=== PATIENT | male | born 1990 | race Caucasian/White ===

== ENCOUNTER 2019-06-18 06:33 | Emergency (ER) | payer MEDICAID ==
[~2019-06-18] VITALS: Ht 175.3 cm; Wt 68.0 kg
--- NOTE | 2019-06-18 06:40 | NUR ---
PT AMBULATED TO BED #11
[2019-06-18 07:04] VITALS: BP 137/97
--- NOTE | 2019-06-18 07:13 | NUR ---
28 Y/O MALE PT C/O LACERATION TO THE LEFT UPPER LIP. PT STATED HE DRINKING AND FELL ON HIS LIP. PAIN IS A SHARP PAIN OF A 5/10. DENIES INJURY. BLEEDING IS CONTROLLED. ALLERGIES: NKA PMH: NONE
[2019-06-18] MEDS ORDERED: LIDOCAINE 1% 500 MG/50 ML VIAL INJ SCH (07:15)
--- NOTE | 2019-06-18 07:37 | NUR ---
DR SERNA PERFORMING BEDSIDE PROCEDURE AT THIS TIME.
[2019-06-18] MEDS ORDERED: LIDOCAINE MPF 1% - 5 mL VIAL 5 ML ONE ×2 (07:42)
[2019-06-18 08:06] VITALS: BP 123/79
--- NOTE | 2019-06-18 08:06 | NUR ---
Patient discharged with v/s stable. Written and verbal after care instructions given and explained. Patient alert, oriented and verbalized understanding of instructions. Ambulatory with steady gait. All questions addressed prior to discharge. ID band removed. Patient advised to follow up with PMD. Rx of AUGMENTIN AND MOTRIN given. Patient educated on indication of medication including possible reaction and side effects. Opportunity to ask questions provided and answered. PT IS WAITING IN [place]OBY FOR FRIEND TO PICK HIM UP
== END 2019-06-18 08:06 | disposition home or self-care (01) ==
LOC: MED 06:33
DX: S01.511A Laceration without foreign body of lip, initial encounter (principal); R03.0 Elevated blood-pressure reading, without diagnosis of hypertension; W19.XXXA Unspecified fall, initial encounter; Y93.89 Activity, other specified; Y92.89 Other specified places as the place of occurrence of the external cause; Y99.8 Other external cause status
CPT/HCPCS: 40650; 99284; J2001